=== PATIENT | male | born 1960 | race Caucasian/White ===

== ENCOUNTER 2020-08-07 13:35 | Inpatient (IN) ==
[2020-08-07] MEDS ORDERED: MoRPHine SULFATE 4 MG/ML 1 ML CARP\\VIAL IV STA (13:59)
[2020-08-07] MEDS ORDERED: PANTOprazole 40 MG in SYRINGE 0 ML IV ONE (13:59)
[2020-08-07] MEDS ORDERED: ONDANSETRON INJ 2 MG/ML 2 ML VIAL IV STA (13:59)
[2020-08-07] MEDS ORDERED: SODIUM CHLORIDE 0.9% 1000ML 2,000 ML IV ONE (14:00)
[2020-08-07 14:15] LABS: iSTAT Creatinine 0.9 mg/dl (0.6-1.3); iSTAT Hemoglobin 16.7 g/dl (14.0-18.0); iSTAT Ionized Calcium 1.16 mmol/l (1.12-1.32); iSTAT Potassium 3.8 mmol/L (3.3-5.0)
[2020-08-07 14:18] LABS: Eosinophils # (auto) 0.02 K/uL (0-0.5); Eosinophils % (auto) 0.2 %; Hematocrit (blood only) 46.3 % (42-52); Hemoglobin 16.6 g/dL (14.0-18.0); Immature Granulocytes # (auto) 0.01 K/uL (0.00-0.02); Immature Granulocytes % (auto) 0.1 %; Lymphocytes # (auto) 1.48 K/uL (1.2-3.4); Lymphocytes % (auto) 16.6 %; Mean Corpuscular Hemoglobin 32.2 pg (25-34); Mean Corpuscular Hgb Conc 35.9 g/dL (32-36); Mean Corpuscular Volume 89.9 fL (80-100); Mean Platelet Volume 8.7 fL (7.4-10.4); Monocytes # (auto) 0.54 K/uL (0.11-0.59); Monocytes % (auto) 6.1 %; Neutrophils # (auto) 6.87 K/uL (1.4-6.5); Platelet Count 310 K/uL (130-400); RDW Coefficient of Variation 13.6 % (11.5-14.5); RDW Standard Deviation 44.5 fL (36.4-46.3); Red Blood Count 5.15 M/uL (4.7-6.1); White Blood Count 8.92 K/uL (4.8-10.8)
--- NOTE | 2020-08-07 14:22 | XRay Report ---
XR chest 1V portable CLINICAL HISTORY: Chest Pain COMPARISON STUDY: No previous studies for comparison. FINDINGS: Lung volumes are normal. There is no pneumothorax or pleural effusion. Moderate right midlu ng consolidation is noted. There is no evidence for pulmonary edema. Cardiac size is normal. Mediasti nal contours are normal. Within visualized portions of the upper abdomen, note is made of multiple di lated loops of small bowel which measure up to 4 cm in caliber. IMPRESSION: 1. Moderate right midlung consolidation suggestive of pneumonia. Radiographic follow-up is recommende d to exclude the less likely possibility of a neoplasm. 2. Multiple loops of dilated small bowel within the upper abdomen, partially imaged on this exam. Thi s raises the possibility of a small bowel obstruction. ACT 112: Positive. There are findings on this exam that require communication between the performing entity and the patient following Patient Test Result Information Act ([place] Act 112) guidelines. Electronically signed by: Raghav Cherry M.D. 08/07/2020 2:20 PM
[2020-08-07] MEDS ORDERED: OPTIRAY 300 100mL IV ONE (14:23)
[2020-08-07 14:29] LABS: INR 1.1 (0.9-1.1); Prothrombin Time 10.7 Seconds (9.0-12.0)
[2020-08-07 14:36] LABS: Alanine Aminotransferase 57 U/L (12-78); Albumin Level 3.6 gm/dl (3.4-5.0); Aspartate Aminotransferase 33 U/L (15-37); Bilirubin Direct 0.4 mg/dl (0-0.2); Blood Urea Nitrogen 16 mg/dl (7-18); Calcium 9.3 mg/dl (8.5-10.1); Carbon Dioxide 28 mmol/L (21-32); Chloride 102 mmol/L (98-107); Est GFR (African American) 104.5; Est GFR (Non-African American) 90.2; Glucose 129 mg/dl (70-99); Lipase 38 U/L (73-393); Magnesium 2.1 mg/dl (1.8-2.4); Potassium 3.7 mmol/L (3.5-5.1); Sodium 135 mmol/L (136-145)
[2020-08-07 14:39] LABS: Albumin Globulin Ratio 0.7 (0.9-2); Alkaline Phosphatase 66 U/L (45-117); Bilirubin,Total 1.3 mg/dl (0.2-1); Globulin 4.9 gm/dl (2.5-4.0); Phosphorus 2.5 mg/dl (2.5-4.9); Total Protein 8.5 gm/dl (6.4-8.2); Troponin I < 0.015 ng/ml (0-0.045)
[2020-08-07 14:55] LABS: Influenza A virus by PCR Negative (Neg); Influenza B virus by PCR Negative (Neg); RSV by PCR Negative (Neg); SARS CoV2 RNA(COVID-19) InHosp NEGATIVE (Negative)
--- NOTE | 2020-08-07 15:07 | CT Scan Report ---
CT OF THE ABDOMEN AND PELVIS WITH CONTRAST CLINICAL HISTORY: Abdominal pain, nausea and vomiting. COMPARISON STUDY: None. TECHNIQUE: Following IV administration of 85 mL of Optiray, axial images of the abdomen and pelvis we re obtained from the lung bases to the proximal femurs. Images were reviewed in the axial, sagittal, and coronal planes. IV contrast was administered without complication. Automated exposure control wa s utilized for the study. A dose lowering technique was utilized adhering to the principles of ALARA . CT DOSE: 281.18 mGy.cm FINDINGS: The pricing strategist image partially visualizes right midlung airspace opacity which is better depicte d on the chest radiograph performed earlier today. There is minimal groundglass opacity within the le ft lower lobe. No pneumatosis, free air or portal venous gas is present. There is a small hiatal silvia ia. Distal esophagus is mildly fluid-filled. The liver, adrenal glands and kidneys are unremarkable. Mild splenomegaly is noted. There is no biliary or pancreatic ductal dilatation. Small amount of asci ruchi within the pelvis is noted. There is trace abdominal ascites as well. The majority of the small b owel is moderately dilated and fluid-filled. Gradual transition is noted within the lower abdomen wit h decompressed distal ileum. Infiltration is noted adjacent to the distal ileum. There is mild mesent rina infiltration associated with several additional small bowel loops. There is no abscess. The appe ndix is normal. Major vasculature is patent. There is no hydronephrosis. There are possible small upp er abdominal collaterals. IMPRESSION: 1. Moderately dilated fluid-filled small bowel with gradual transition within the distal small bowel with decompressed distal ileum with adjacent mesenteric infiltration and a small amount of ascites. T he findings suggest a small bowel obstruction possibly related to a nonspecific enteritis. No well-de fined transition point identified. 2. Right midlung airspace opacity shown on pricing strategist image, better depicted on chest radiograph. This is indeterminate and follow-up PA and lateral chest radiographs in one month are recommended to ensure r esolution. 3. Minimal ground glass opacity within the left lower lobe. ACT 112: Negative or not required by law. Electronically signed by: Raghav Cherry M.D. 08/07/2020 3:05 PM
--- NOTE | 2020-08-07 15:40 | Electrocardiogram Report ---
Test Reason : Blood Pressure : / mmHG Vent. Rate : 097 BPM Atrial Rate : 097 BPM P-R Int : 132 ms QRS Dur : 072 ms QT Int : 346 ms P-R-T Axes : 076 -01 079 degrees QTc Int : 439 ms Normal sinus rhythm Possible Left atrial enlargement Borderline ECG No previous ECGs available Confirmed by Parminder Robison ([id number]) on 08/07/2020 3:40:16 PM Referred By: REFERRED SELF Confirmed By:Parminder Robison
[2020-08-07] MEDS ORDERED: FAMOTIDINE 20MG IV PUSH 20 MG/5 ML SYR IV STA (16:00)
--- NOTE | 2020-08-07 16:57 | History & Physical Report ---
Date of Service August 07, 2020 Assessment & Plan (1) SBO (small bowel obstruction): - Mental monitor bed - Continue conservative measures with n.p.o., IV fluids, and low intermittent NG tube suction - Consider infectious cause, will start Cipro and Flagyl IV empirically -IV Pepcid 20 mg every 12 hours as PPI is on backorder - Patient has a bowel movement, collect for stool sample and possible C. difficile testing - Ask GI as noted below - We will ask general surgery to evaluate although patient has no immediate indications for surgery at this time (2) Hematemesis: - Hematemesis seems doubtful as patient is now draining bilious secretions. Hemoglobin is within normal limits - We will order gastroccult - consider EGD, GI will be consulted for possible further work-up (3) Patient denies significant medical history: Patient is on no outpatient medications, denied any medical problems or previous abdominal surgery. He also denied NSAID intake. I will continue to monitor. The patient does have regular alcohol intake, I would be concerned for a possible alcohol withdrawal. SCDs only now for DVT prophylaxis. History of Present Illness Primary Care Provider: NO PCP This is a 60-year-old male who denies any medical problems that presents today complaining of significant abdominal pain. Patient is a somewhat limited historian but answers questions appropriately. Patient states that yesterday in the early afternoon he started having abdominal pain which worsened fairly quickly. The pain was in the bilateral upper quadrants. It was associated with vomiting which was described to the ER attending as "black and tarry ". Pain was significant which prompted the patient to come to the emergency room. He did note his last bowel movement was yesterday which was brown and fairly normal. Patient was afebrile, denied symptom such as chest pain, shortness of breath, fever, chills. During work-up, patient was found to have a small bowel obstruction with questionable nonspecific enteritis. NG tube was inserted which is draining dark bilious material which does not appear to be blood. Patient is uncomfortable secondary to the NG tube but feels his abdominal pain is improved significantly. Patient is now being admitted for further work-up and treatment. Allergies Allergy/AdvReac Type Severity Reaction Status Date / Time diphenhydramine Allergy Mild Itching Unverified 08/07/20 15:41 [From Benadryl] Home Medications Medication Instructions Recorded Confirmed Type No Known Home Medications 08/07/20 08/07/20 History Past Med/Surg History Social History (Updated 08/07/20 @ 16:48 by Francisco Morales DO) Smoking Status: Never smoker Do You Dip or Chew Tobacco: Yes; Hx Alcohol Use: Yes (3 beers daily) Preferred Language: Irish Feels Safe at Home: Yes Review of Systems Constitutional: no fever, no chills, no fatigue and no anorexia Respiratory: no cough, no chest congestion, no change in sputum, no dyspnea, no dyspnea on exertion and no pain on inspiration Cardiovascular: no chest pain, no chest pain at rest, no chest pain with activity, no dyspnea, no orthopnea and no lightheadedness Gastrointestinal: + abdominal pain, + bloating, + nausea, + vomiting and + hematemesis (questionable); no coffee ground emesis, no dysphagia, no change in stools and no melena Genitourinary: no dysuria, no difficulty urinating, no urinary frequency, no urinary hesitancy and no urinary incontinence Musculoskeletal: no back pain, no neck pain, no radicular pain, no joint pain and no stiffness Integumentary: as per Subjective / HPI Neurologic: as per Subjective / HPI Psychiatric: as per Subjective / HPI Physical Exam Neck: trachea midline, no thyromegaly Respiratory: normal respiratory effort, lungs clear to auscultation Auscultation: lungs clear to auscultation bilaterally Cardiovascular: RRR, no murmur, no edema Heart Sounds: normal S1 and normal S2 Gastrointestinal (Abdomen): normal bowel sounds, soft, nontender, no hepa tosplenomegaly Inspection/Auscultation: abdomen normal to inspection and + hypoactive bowel sounds Percussion/Palpation: abdomen soft Rectal Exam: heme negative stool (scant brown stool per ER physician) NG tube draining dark green secretions Musculoskeletal: no cyanosis or clubbing, extremities motor strength 5/5 Neurologic: PERRL, EOMI, accommodation nl, no face palsy, no dysarthria Results & Data Results & Data ([facility]) Vital Signs (Past 12 Hours) Vital Signs Temp Pulse Pulse Resp BP BP Pulse Ox 08/07/20 16:00 87 14 131/83 98 08/07/20 15:31 94 H 15 136/81 98 08/07/20 15:30 90 16 99 08/07/20 15:00 94 H 14 124/84 98 08/07/20 14:49 98 H 24 119/79 95 08/07/20 14:48 98 H 15 98 08/07/20 14:00 104 H 129/87 100 08/07/20 13:50 98 H 17 138/91 98 08/07/20 13:48 96 H 16 95 08/07/20 13:44 101 H 22 150/98 H 95 08/07/20 13:35 36.5 C 115 H 115 H 22 150/98 H 150/98 H 93 PG Care Time/CCT Total # of Minutes Spent Total Time Spent with Patient: Total time spent is greater than 50% in coordination of care (as documented) at patient's floor/unit and/or counseling patient: Coding Level of Care Code 13185 Initial Inpt Care Lvl 3 Diagnoses SBO (small bowel obstruction) K56.609 Hematemesis K92.0 Patient denies significant medical history
--- NOTE | 2020-08-07 17:37 | Emergency Department Note ---
Impression & Plan SBO (small bowel obstruction), Abdominal pain, Intractable vomiting with nausea, Alcohol use, Chewing tobacco use ED Provider Note NAME: CHINMAY MCGINNIS AGE: 60 SEX: M ARRIVES VIA: Ambulance INFORMANT: Patient, ED PROVIDER(S): Jean Sanders MD CHIEF COMPLAINT: Abdominal pain, n/v PLAN: Disposition: Admit MEDICAL DECISION MAKING: The patient is a pleasant 60-year-old gentleman with a past medical history of regular alcohol use who presents to the emergency department with worsening nausea, vomiting of black emesis, and abdominal pain since yesterday. He reports history of daily drinking of alcohol but denies any history of withdrawal. He does admit to frequent use of ibuprofen as well. He denies any history of abdominal surgeries. Prior to this he denies any fevers, chills, cough, congestion, known COVID-19 exposures. On arrival the patient is uncomfortable in moderate distress, afebrile with heart rate in the 110s and vital signs otherwise stable. On exam the patient appears clinically dry. His abdomen is mildly distended and tender throughout. Rectal exam demonstrates brown stool that is Hemoccult negative. There is no gross blood or melena. EKG without overt acute ischemia. Chest x-ray negative for acute cardiopulmonary process and no free air underneath the diaphragm. Partial view of suspected dilated loops of bowel raises suspicion for possible obstruction. WBC, H/H and platelets within normal limits. Chemistry without metabolic acidosis. Electrolytes and LFTs are unremarkable. Troponin negative/undetectable. Lipase not elevated. Alcohol was undetectable. COVID- 19 PCR negative. Influenza and RSV PCR also negative. CT abdomen pelvis was performed and demonstrates "moderately dilated fluid-filled small bowel with gradual transition within the distal small bowel with decompressed distal ileum with adjacent mesenteric infiltration and a small amount of ascites. Suggestive of a small bowel obstruction possibly related to a nonspecific enteritis. No well-defined transition point identified." Note is made of right midlung airspace opacity however of unclear significance at this time given lack of respiratory symptoms. Upon reevaluation patient did feel improved after IV fluid hydration, morphine, Protonix. Abdomen however still mildly tender. Given H/H wnl, brown stool on rectal exam upper GIB less likely. Dark/black color possibly due to patient use of chewing tobacco. Patient was in agreement with plan for admission, NG tube and further management of small bowel obstruction. Case was d/w Dr. [place]ales [facility] [place] who will evaluate the patient for admission. Triage Nursing notes reviewed and agree them. Prior medical records reviewed Vital Signs: reviewed and remarkable for no significant abnormalities Differential diagnosis: Appendicitis, testicular torsion, infections, diverticulitis, UTI, obstruction, mesenteric ischemia, aortic pathology, inflammatory bowel disease, renal colic, PUD, pancreatitis, biliary pathology, hernia, volvulus, constipation, as well as other pathologies. ER treatment provided: See below. Diagnostics interpreted by me: ECG: Normal sinus rhythm, 97 bpm, no ectopy, no overt ST elevation or depression, QTC 439, cures 72. Cardiac Monitoring: An order for continuous cardiac monitoring was placed and demonstrated Normal sinus rhythm, 97 bpm, no ectopy. Laboratory studies: See below Imaging studies: See below Consultation(s): Case was d/w Dr. Morales [facility] [place] who will evaluate the patient for admission. HPI: The patient is a pleasant 60-year-old gentleman with a past medical history of regular alcohol use who presents to the emergency department with worsening nausea, vomiting and abdominal pain since yesterday. He reports history of daily drinking of alcohol but denies any history of withdrawal. He does admit to frequent use of ibuprofen as well. He denies any history of abdominal surgeries. Prior to this he denies any fevers, chills, cough, congestion, known COVID-19 exposures. ROS: See above HPI for pertinent positives & negatives. A total of 10 systems reviewed and were otherwise negative. PAST MEDICAL HISTORY:See Below PAST SURGICAL HISTORY:See Below FAMILY HISTORY:See Below SOCIAL HISTORY:See Below HOME MEDICATIONS:See Below ALLERGIES:See Below VITALS:See Below PHYSICAL EXAMINATION: GENERAL: Awake, alert, uncomfortable-appearing, in no distress HENT: Normocephalic, atraumatic. Oropharynx with dry mucous membranes and otherwise unremarkable. EYES: Normal conjunctiva. Sclera non-icteric. NECK: Supple. No nuchal rigidity. FROM. No JVD. RESPIRATORY: Clear to auscultation. CARDIAC: Tachycardic rate, normal rhythm. Extremities warm and well perfused. Pulses equal. ABDOMEN: Mild distention. Generalized abdominal tenderness to palpation. No rebound or guarding. No masses. RECTAL: Deferred. MUSCULOSKELETAL: Chest examination reveals no tenderness. The back is sy mmetrical on inspection without obvious abnormality. There is no CVA tenderness to palpation. No joint edema. LOWER EXTREMITIES: Calves are equal size bilaterally and non-tender. No edema. No discoloration. NEURO: Normal sensorium. No sensory or motor deficits noted. SKIN: No rash or jaundice noted. Jean Sanders MD Past Med/Surg History Medical History Alcohol use Chewing tobacco use Social History Smoking Status: Former smoker Do You Dip or Chew Tobacco: Yes; Hx Alcohol Use: Yes Alcohol type: beer Hx Substance Use: Yes Last Used Substance: Days (ago) Last Used Substance Other:: Smokes marijuana every weekend Preferred Language: Martiniquais Communication Ability: Effective Meat Team Member Required: No Beliefs That Will Affect Care: None Current Living Situation: Family Other Information That Helps Us Care for You: No Feels Safe at Home: Yes Safety Concerns: Feels Safe At This Time Assistive Devices: None Allergies Allergies Allergy/AdvReac Type Severity Reaction Status Date / Time diphenhydramine Allergy Mild Itching Unverified 08/07/20 15:41 [From Benadryl] Home Meds Home Medications Medication Instructions Recorded Confirmed No Known Home Medications 08/07/20 08/07/20 Results & Data (ED) Vital Signs Vital Signs - 24 hr 08/07/20 13:35 08/07/20 13:44 08/07/20 13:48 Temperature 36.5 C Temperature Source Oral Pulse Rate 115 H 101 H 96 H Pulse Rate [Apical] 115 H Pulse Rate from SpO2 Sensor 99 H 92 H Pulse Rhythm Regular Respiratory Rate 22 22 16 Respiratory Effort / Characteristics Short of Breath Blood Pressure 150/98 H 150/98 H Blood Pressure [Right Arm] 150/98 H Blood Pressure Mean 115 115 Blood Pressure Mean [Right Arm] 115 Blood Pressure Position Lying Blood Pressure Position [Right Arm] Lying Pulse Oximetry 93 95 95 Oxygen Delivery Method Room Air Sepsis Recent Fever Within 48 Hours No Sepsis New/Unexplained Change in Mental Status N/A Sepsis Action Taken by Nursing Physician Notified 08/07/20 13:50 08/07/20 14:00 08/07/20 14:48 Temperature Temperature Source Pulse Rate 98 H 104 H 98 H Pulse Rate [Apical] Pulse Rate from SpO2 Sensor 98 H 103 H 97 H Pulse Rhythm Respiratory Rate 17 15 Respiratory Effort / Characteristics Blood Pressure 138/91 129/87 Blood Pressure [Right Arm] Blood Pressure Mean 106 101 Blood Pressure Mean [Right Arm] Blood Pressure Position Blood Pressure Position [Right Arm] Pulse Oximetry 98 100 98 Oxygen Delivery Method Sepsis Recent Fever Within 48 Hours Sepsis New/Unexplained Change in Mental Status Sepsis Action Taken by Nursing 08/07/20 14:49 08/07/20 15:00 08/07/20 15:30 Temperature Temperature Source Pulse Rate 98 H 94 H 90 Pulse Rate [Apical] Pulse Rate from SpO2 Sensor 98 H 93 H 91 H Pulse Rhythm Respiratory Rate 24 14 16 Respiratory Effort / Characteristics Blood Pressure 119/79 124/84 Blood Pressure [Right Arm] Blood Pressure Mean 92 97 Blood Pressure Mean [Right Arm] Blood Pressure Position Blood Pressure Position [Right Arm] Pulse Oximetry 95 98 99 Oxygen Delivery Method Sepsis Recent Fever Within 48 Hours Sepsis New/Unexplained Change in Mental Status Sepsis Action Taken by Nursing 08/07/20 15:31 08/07/20 16:00 08/07/20 16:30 Temperature Temperature Source Pulse Rate 94 H 87 Pulse Rate [Apical] Pulse Rate from SpO2 Sensor 93 H 78 84 Pulse Rhythm Respiratory Rate 15 14 18 Respiratory Effort / Characteristics Blood Pressure 136/81 131/83 133/84 Blood Pressure [Right Arm] Blood Pressure Mean 99 99 100 Blood Pressure Mean [Right Arm] Blood Pressure Position Blood Pressure Position [Right Arm] Pulse Oximetry 98 98 97 Oxygen Delivery Method Sepsis Recent Fever Within 48 Hours Sepsis New/Unexplained Change in Mental Status Sepsis Action Taken by Nursing 08/07/20 17:00 Temperature Temperature Source Pulse Rate Pulse Rate [Apical] Pulse Rate from SpO2 Sensor 101 H Pulse Rhythm Respiratory Rate 19 Respiratory Effort / Characteristics Blood Pressure 133/96 Blood Pressure [Right Arm] Blood Pressure Mean 108 Blood Pressure Mean [Right Arm] Blood Pressure Position Blood Pressure Position [Right Arm] Pulse Oximetry 97 Oxygen Delivery Method Sepsis Recent Fever Within 48 Hours Sepsis New/Unexplained Change in Mental Status Sepsis Action Taken by Nursing Laboratory Data Attestation: I reviewed the patient's lab results. Result diagrams: 08/07/20 13:57 08/07/20 13:57 Lab Results 08/07/20 08/07/20 08/07/20 Range/Units 13:54 13:54 13:57 WBC (4.8-10.8) K/uL RBC (4.7-6.1) M/uL Hgb (14.0-18.0) g/dL POC Hgb (14.0-18.0) g/dl Hct (42-52) % POC Hct (42-52) % MCV (80-100) fL MCH (25-34) pg MCHC (32-36) g/dL RDW Std Deviation (36.4-46.3) fL RDW Coeff of Sylwia (11.5-14.5) % Plt Count (130-400) K/uL MPV (7.4-10.4) fL Immature Gran % (Auto) % Neut % (Auto) % Lymph % (Auto) % Sebastian % (Auto) % Eos % (Auto) % Baso % (Auto) % Neut # (Auto) (1.4-6.5) K/uL Lymph # (Auto) (1.2-3.4) K/uL Sebastian # (Auto) (0.11-0.59) K/uL Eos # (Auto) (0-0.5) K/uL Baso # (Auto) (0-0.2) K/uL Immature Gran # (Auto) (0.00-0.02) K/uL PT (9.0-12.0) Seconds INR (0.9-1.1) POC Sodium (135-144) mmol/L Sodium (136-145) mmol/L POC Potassium (3.3-5.0) mmol/L Potassium (3.5-5.1) mmol/L POC Chloride (101-112) mmol/L Chloride (98-107) mmol/L Carbon Dioxide (21-32) mmol/L POC Total CO2 (24-31) mmol/L Anion Gap (3-11) POC Anion Gap (16-25) mmol/L POC BUN (7-18) mg/dl BUN (7-18) mg/dl Creatinine (0.6-1.4) mg/dl POC Creatinine (0.6-1.3) mg/dl Est Cr Clr Drug Dosing ml/min Est GFR ( Amer) Est GFR (Non-Af Amer) BUN/Creatinine Ratio (10-20) Glucose (70-99) mg/dl POC Glucose (other) (70-99) mg/dl Calcium (8.5-10.1) mg/dl POC Ioniz Calcium Castillo (1.12-1.32) mmol/l Phosphorus (2.5-4.9) mg/dl Magnesium (1.8-2.4) mg/dl Total Bilirubin (0.2-1) mg/dl Direct Bilirubin (0-0.2) mg/dl AST (15-37) U/L ALT (12-78) U/L Alkaline Phosphatase (45-117) U/L Troponin I (0-0.045) ng/ml Total Protein (6.4-8.2) gm/dl Albumin (3.4-5.0) gm/dl Globulin (2.5-4.0) gm/dl Albumin/Globulin Ratio (0.9-2) Lipase (73-393) U/L Ethyl Alcohol mg/dL (0-3) mg/dl COVID-19 Eval Order CovFluRsv at [facility] SARS-CoV-2 (PCR) NEGATIVE (Negative) Influenza Type A (PCR) Negative (Neg) Influenza Type B (PCR) Negative (Neg) RSV (RT-PCR) Negative (Neg) Blood Type A Positive Antibody Screen NEGATIVE 08/07/20 08/07/20 08/07/20 Range/Units 13:57 13:57 13:57 WBC 8.92 (4.8-10.8) K/uL RBC 5.15 (4.7-6.1) M/uL Hgb 16.6 (14.0-18.0) g/dL POC Hgb (14.0-18.0) g/dl Hct 46.3 (42-52) % POC Hct (42-52) % MCV 89.9 (80-100) fL MCH 32.2 (25-34) pg MCHC 35.9 (32-36) g/dL RDW Std Deviation 44.5 (36.4-46.3) fL RDW Coeff of Sylwia 13.6 (11.5-14.5) % Plt Count 310 (130-400) K/uL MPV 8.7 (7.4-10.4) fL Immature Gran % (Auto) 0.1 % Neut % (Auto) 77.0 % Lymph % (Auto) 16.6 % Sebastian % (Auto) 6.1 % Eos % (Auto) 0.2 % Baso % (Auto) 0.0 % Neut # (Auto) 6.87 H (1.4-6.5) K/uL Lymph # (Auto) 1.48 (1.2-3.4) K/uL Sebastian # (Auto) 0.54 (0.11-0.59) K/uL Eos # (Auto) 0.02 (0-0.5) K/uL Baso # (Auto) 0.00 (0-0.2) K/uL Immature Gran # (Auto) 0.01 (0.00-0.02) K/uL PT 10.7 (9.0-12.0) Seconds INR 1.1 (0.9-1.1) POC Sodium (135-144) mmol/L Sodium 135 L (136-145) mmol/L POC Potassium (3.3-5.0) mmol/L Potassium 3.7 (3.5-5.1) mmol/L POC Chloride (101-112) mmol/L Chloride 102 (98-107) mmol/L Carbon Dioxide 28 (21-32) mmol/L POC Total CO2 (24-31) mmol/L Anion Gap 5.0 (3-11) POC Anion Gap (16-25) mmol/L POC BUN (7-18) mg/dl BUN 16 (7-18) mg/dl Creatinine 0.93 (0.6-1.4) mg/dl POC Creatinine (0.6-1.3) mg/dl Est Cr Clr Drug Dosing 97.0 ml/min Est GFR ( Amer) 104.5 Est GFR (Non-Af Amer) 90.2 BUN/Creatinine Ratio 17.0 (10-20) Glucose 129 H (70-99) mg/dl POC Glucose (other) (70-99) mg/dl Calcium 9.3 (8.5-10.1) mg/dl POC Ioniz Calcium Castillo (1.12-1.32) mmol/l Phosphorus 2.5 (2.5-4.9) mg/dl Magnesium 2.1 (1.8-2.4) mg/dl Total Bilirubin 1.3 H (0.2-1) mg/dl Direct Bilirubin 0.4 H (0-0.2) mg/dl AST 33 (15-37) U/L ALT 57 (12-78) U/L Alkaline Phosphatase 66 (45-117) U/L Troponin I < 0.015 (0-0.045) ng/ml Total Protein 8.5 H (6.4-8.2) gm/dl Albumin 3.6 (3.4-5.0) gm/dl Globulin 4.9 H (2.5-4.0) gm/dl Albumin/Globulin Ratio 0.7 L (0.9-2) Lipase 38 L (73-393) U/L Ethyl Alcohol mg/dL (0-3) mg/dl COVID-19 Eval Order SARS-CoV-2 (PCR) (Negative) Influenza Type A (PCR) (Neg) Influenza Type B (PCR) (Neg) RSV (RT-PCR) (Neg) Blood Type Antibody Screen 08/07/20 08/07/20 Range/Units 14:02 14:06 WBC (4.8-10.8) K/uL RBC (4.7-6.1) M/uL Hgb (14.0-18.0) g/dL POC Hgb 16.7 (14.0-18.0) g/dl Hct (42-52) % POC Hct 49 (42-52) % MCV (80-100) fL MCH (25-34) pg MCHC (32-36) g/dL RDW Std Deviation (36.4-46.3) fL RDW Coeff of Sylwia (11.5-14.5) % Plt Count (130-400) K/uL MPV (7.4-10.4) fL Immature Gran % (Auto) % Neut % (Auto) % Lymph % (Auto) % Sebastian % (Auto) % Eos % (Auto) % Baso % (Auto) % Neut # (Auto) (1.4-6.5) K/uL Lymph # (Auto) (1.2-3.4) K/uL Sebastian # (Auto) (0.11-0.59) K/uL Eos # (Auto) (0-0.5) K/uL Baso # (Auto) (0-0.2) K/uL Immature Gran # (Auto) (0.00-0.02) K/uL PT (9.0-12.0) Seconds INR (0.9-1.1) POC Sodium 138 (135-144) mmol/L Sodium (136-145) mmol/L POC Potassium 3.8 (3.3-5.0) mmol/L Potassium (3.5-5.1) mmol/L POC Chloride 100 L (101-112) mmol/L Chloride (98-107) mmol/L Carbon Dioxide (21-32) mmol/L POC Total CO2 27 (24-31) mmol/L Anion Gap (3-11) POC Anion Gap 16.0 (16-25) mmol/L POC BUN 16 (7-18) mg/dl BUN (7-18) mg/dl Creatinine (0.6-1.4) mg/dl POC Creatinine 0.9 (0.6-1.3) mg/dl Est Cr Clr Drug Dosing ml/min Est GFR ( Amer) Est GFR (Non-Af Amer) BUN/Creatinine Ratio (10-20) Glucose (70-99) mg/dl POC Glucose (other) 127 H (70-99) mg/dl Calcium (8.5-10.1) mg/dl POC Ioniz Calcium Castillo 1.16 (1.12-1.32) mmol/l Phosphorus (2.5-4.9) mg/dl Magnesium (1.8-2.4) mg/dl Total Bilirubin (0.2-1) mg/dl Direct Bilirubin (0-0.2) mg/dl AST (15-37) U/L ALT (12-78) U/L Alkaline Phosphatase (45-117) U/L Troponin I (0-0.045) ng/ml Total Protein (6.4-8.2) gm/dl Albumin (3.4-5.0) gm/dl Globulin (2.5-4.0) gm/dl Albumin/Globulin Ratio (0.9-2) Lipase (73-393) U/L Ethyl Alcohol mg/dL < 3.0 (0-3) mg/dl COVID-19 Eval Order SARS-CoV-2 (PCR) (Negative) Influenza Type A (PCR) (Neg) Influenza Type B (PCR) (Neg) RSV (RT-PCR) (Neg) Blood Type Antibody Screen Administered Medications Ciprofloxacin (Cipro / D5w) 400 mg in 200 mls @ 100 mls/hr IV Q12H MINDY; Protocol Stop: 08/17/20 20:59 Last Admin: 08/07/20 20:41 Dose: 100 mls/hr Documented by: [id number] Metronidazole (Flagyl) 500 mg in 100 mls @ 100 mls/hr IV Q8H MINDY Stop: 08/17/20 19:59 Last Admin: 08/07/20 20:40 Dose: 100 mls/hr Documented by: [id number] Sodium Chloride (Nss 1000ml) 1,000 mls @ 100 mls/hr IV .Q10H MINDY Stop: 09/06/20 19:25 Last Admin: 08/07/20 20:39 Dose: 100 mls/hr Documented by: [id number] Famotidine 20 mg/ Syringe 5 mls @ 2.5 mls/min IV Q12H MINDY Stop: 09/06/20 20:59 Last Admin: 08/07/20 20:41 Dose: 2.5 mls/min Documented by: [id number] Discontinued Medications Pantoprazole Sodium 40 mg/ (Syringe) 10 mls @ 5 mls/min IV NOW ONE Stop: 08/07/20 14:00 Last Admin: 08/07/20 14:51 Dose: 5 mls/min Documented by: [id number] Sodium Chloride (Nss 1000ml) 2,000 mls @ 999 mls/hr IV .Q2H1M ONE Stop: 08/07/20 16:00 Last Infusion: 08/07/20 16:35 Dose: 0 mls/hr Documented by: [id number] Admin: 08/07/20 14:11 Dose: 999 mls/hr Documented by: [id number] Famotidine (Pepcid 20mg Iv Push) 20 mg in 5 mls @ 2.5 mls/min IV NOW STA Stop: 08/07/20 16:01 Last Admin: 08/07/20 16:21 Dose: 2.5 mls/min Documented by: [id number] Ioversol (Optiray 300 100ml) 85 ml IV ONCE ONE Stop: 08/07/20 14:24 Last Admin: 08/07/20 14:23 Dose: 85 ml Documented by: [id number] Morphine Sulfate (Morphine Sulfate 4 Mg/Ml 1 Ml Carp\\Vial) 4 mg IV NOW STA Stop: 08/07/20 14:00 Last Admin: 08/07/20 14:11 Dose: 4 mg Documented by: [id number] Ondansetron HCl (Ondansetron Inj 2 Mg/Ml 2 Ml Vial) 4 mg IV NOW STA Stop: 08/07/20 14:00 Last Admin: 08/07/20 14:11 Dose: 4 mg Documented by: [id number] Imaging Data Radiologist's Impression: Chest X-Ray 08/07/20 14:00 XR chest 1V portable CLINICAL HISTORY: Chest Pain COMPARISON STUDY: No previous studies for comparison. FINDINGS: Lung volumes are normal. There is no pneumothorax or pleural effusion. Moderate right midlung consolidation is noted. There is no evidence for pulmonary edema. Cardiac size is normal. Mediastinal contours are normal. Within visualized portions of the upper abdomen, note is made of multiple dilated loops of small bowel which measure up to 4 cm in caliber. IMPRESSION: 1. Moderate right midlung consolidation suggestive of pneumonia. Radiographic follow-up is recommended to exclude the less likely possibility of a neoplasm. 2. Multiple loops of dilated small bowel within the upper abdomen, partially imaged on this exam. This raises the possibility of a small bowel obstruction. ACT 112: Positive. There are findings on this exam that require communication between the performing entity and the patient following Patient Test Result Information Act ([place] Act 112) guidelines. Electronically signed by: Raghav Cherry M.D. 08/07/2020 2:20 PM Abdomen/Pelvis CT 08/07/20 14:01 CT OF THE ABDOMEN AND PELVIS WITH CONTRAST CLINICAL HISTORY: Abdominal pain, nausea and vomiting. COMPARISON STUDY: None. TECHNIQUE: Following IV administration of 85 mL of Optiray, axial images of the abdomen and pelvis were obtained from the lung bases to the proximal femurs. Images were reviewed in the axial, sagittal, and coronal planes. IV contrast was administered without complication. Automated exposure control was utilized for the study. A dose lowering technique was utilized adhering to the principles of ALARA. CT DOSE: 281.18 mGy.cm FINDINGS: The plasterer spot image partially visualizes right midlung airspace opacity which is better depicted on the chest radiograph performed earlier today. There is minimal groundglass opacity within the left lower lobe. No pneumatosis, free air or portal venous gas is present. There is a small hiatal hernia. Distal esophagus is mildly fluid-filled. The liver, adrenal glands and kidneys are unremarkable. Mild splenomegaly is noted. There is no biliary or pancreatic ductal dilatation. Small amount of ascites within the pelvis is noted. There is trace abdominal ascites as well. The majority of the small bowel is moderately dilated and fluid-filled. Gradual transition is noted within the lower abdomen with decompressed distal ileum. Infiltration is noted adjacent to the distal ileum. There is mild mesenteric infiltration associated with several additional small bowel loops. There is no abscess. The appendix is normal. Major vasculature is patent. There is no hydronephrosis. There are possible small upper abdominal collaterals. IMPRESSION: 1. Moderately dilated fluid-filled small bowel with gradual transition within the distal small bowel with decompressed distal ileum with adjacent mesenteric i nfiltration and a small amount of ascites. The findings suggest a small bowel obstruction possibly related to a nonspecific enteritis. No well-defined transition point identified. 2. Right midlung airspace opacity shown on plasterer spot image, better depicted on chest radiograph. This is indeterminate and follow-up PA and lateral chest radiographs in one month are recommended to ensure resolution. 3. Minimal ground glass opacity within the left lower lobe. ACT 112: Negative or not required by law. Electronically signed by: Raghav Cherry M.D. 08/07/2020 3:05 PM Discharge Plan Visit Data Chief Complaint: Abdominal Pain Stated Complaint: gi bleed ED Provider: Jean Sanders Discharge Problem: SBO (small bowel obstruction), Abdominal pain, Intractable vomiting with nausea, Alcohol use, Chewing tobacco use Patient Disposition: Admitted As Inpatient Discharge Instructions Interventions: ED Discharge Assessment Last Done: 08/07/20 18:20
[2020-08-07] MEDS ORDERED: MoRPHine SULFATE 2 MG/ML CARP IV PRN (19:26)
[2020-08-07] MEDS ORDERED: ONDANSETRON INJ 2 MG/ML 2 ML VIAL IV PRN (19:26)
[2020-08-07] MEDS: SODIUM CHLORIDE 0.9% 1000ML 1,000 ML IV SCH (20:39)
[2020-08-07] MEDS: metroNIDAZOLE 500 MG/100 ML BAG IV SCH (20:40)
[2020-08-07] MEDS: CIPROFLOXACIN / D5W 400 MG/200 ML BAG IV SCH (20:41)
[2020-08-07] MEDS: FAMOTIDINE 20 MG in SYRINGE 3 ML IV SCH (20:41)
[2020-08-08] MEDS: metroNIDAZOLE 500 MG/100 ML BAG IV SCH ×3 (05:04→19:48)
[2020-08-08 05:17] LABS: Gastric Occult Blood Positive (Negative)
[2020-08-08] MEDS: SODIUM CHLORIDE 0.9% 1000ML 1,000 ML IV SCH ×2 (06:18→15:35)
[2020-08-08 06:45] LABS: Basophils # (auto) 0.01 K/uL (0-0.2); Basophils % (auto) 0.2 %; Eosinophils # (auto) 0.06 K/uL (0-0.5); Eosinophils % (auto) 1.1 %; Hemoglobin 14.5 g/dL (14.0-18.0); Lymphocytes % (auto) 26.2 %; Mean Corpuscular Hemoglobin 31.3 pg (25-34); Mean Corpuscular Hgb Conc 35.4 g/dL (32-36); Mean Corpuscular Volume 88.4 fL (80-100); Mean Platelet Volume 8.9 fL (7.4-10.4); Monocytes % (auto) 11.2 %; Neutrophils # (auto) 3.28 K/uL (1.4-6.5); Neutrophils % (auto) 61.3 %; Platelet Count 222 K/uL (130-400); RDW Coefficient of Variation 13.6 % (11.5-14.5); RDW Standard Deviation 44.3 fL (36.4-46.3); Red Blood Count 4.64 M/uL (4.7-6.1); White Blood Count 5.35 K/uL (4.8-10.8)
[2020-08-08 07:15] LABS: BUN Creatinine Ratio 15.3 (10-20); Calcium 8.7 mg/dl (8.5-10.1); Creatinine Clr Calc Pharmacy 98.3 ml/min; Est GFR (African American) 118.5; Est GFR (Non-African American) 102.2; Potassium 3.9 mmol/L (3.5-5.1)
--- NOTE | 2020-08-08 07:17 | Surgery Consultation ---
Date of Consultation August 08, 2020 Assessment & Plan (1) Abdominal pain: (2) SBO (small bowel obstruction): pt is a 60 year-old male who was admitted to hospital for SBO, IMP: SBO, Plan, I agree with conservative treatment now, npo, NG tube, IV fluid, control pain, KUB today, D/W possible surgery treatment if pt develops severe abdominal high fever or WBC, pt understood, he agrees with the treatment, plan, I answered all questions, will F/U Present on Admission?: Yes History of Present Illness Attending Physician: Francisco Morales DO History of Present Illness Primary Care Provider: NO PCP CC: abdominal pain This is a 60-year-old male who denies any medical problems that presents today complaining of significant abdominal pain. Patient is a somewhat limited hi storian but answers questions appropriately. Patient states that yesterday in the early afternoon he started having abdominal pain which worsened fairly quickly. The pain was in the bilateral upper quadrants. It was associated with vomiting which was described to the ER attending as "black and tarry ". Pain was significant which prompted the patient to come to the emergency room. He did note his last bowel movement was yesterday which was brown and fairly normal. Patient was afebrile, denied symptom such as chest pain, shortness of breath, fever, chills. During work-up, patient was found to have a small bowel obstruction with questionable nonspecific enteritis. NG tube was inserted which is draining dark bilious material which does not appear to be blood. Patient is uncomfortable secondary to the NG tube but feels his abdominal pain is improved significantly. Patient is now being admitted for further work-up and treatment. Allergies Allergy/AdvReac Type Severity Reaction Status Date / Time diphenhydramine Allergy Mild Itching Unverified 08/07/20 15:41 [From Benadryl] Home Medications Medication Instructions Recorded Confirmed Type No Known Home Medications 08/07/20 08/07/20 History Past Med/Surg History Social History (Updated 08/07/20 @ 16:48 by Francisco Morales DO) Smoking Status: Never smoker Do You Dip or Chew Tobacco: Yes; Hx Alcohol Use: Yes (3 beers daily) Preferred Language: Citizen Of [place] Feels Safe at Home: Yes Review of Systems Constitutional: no fever, no chills, no fatigue and no anorexia Respiratory: no cough, no chest congestion, no change in sputum, no dyspnea, no dyspnea on exertion and no pain on inspiration Cardiovascular: no chest pain, no chest pain at rest, no chest pain with activity, no dyspnea, no orthopnea and no lightheadedness Gastrointestinal: + abdominal pain, + bloating, + nausea, + vomiting and + hematemesis (questionable); no coffee ground emesis, no dysphagia, no change in stools and no melena Genitourinary: no dysuria, no difficulty urinating, no urinary frequency, no urinary hesitancy and no urinary incontinence Musculoskeletal: no back pain, no neck pain, no radicular pain, no joint pain and no stiffness Integumentary: as per Subjective / HPI Neurologic: as per Subjective / HPI Psychiatric: as per Subjective / HPI Allergies Allergy/AdvReac Type Severity Reaction Status Date / Time diphenhydramine Allergy Mild Itching Unverified 08/07/20 15:41 [facility] Home Medications Medication Instructions Recorded Confirmed Type No Known Home Medications 08/07/20 08/07/20 History Patient History Medical History Alcohol use Chewing tobacco use Social History Smoking Status: Former smoker Do You Dip or Chew Tobacco: Yes; Hx Alcohol Use: Yes Alcohol type: beer Hx Substance Use: Yes Last Used Substance: Days (ago) Last Used Substance Other:: Smokes marijuana every weekend Preferred Language: Citizen Of [place] Communication Ability: Effective Market Maker Required: No Beliefs That Will Affect Care: None Current Living Situation: Family Other Information That Helps Us Care for You: No Feels Safe at Home: Yes Safety Concerns: Feels Safe At This Time Assistive Devices: None Physical Exam Constitutional: WD/WN, vitals as above well developed and well nourished Eyes: PERRL, conjunctivae normal, anicteric sclerae ENMT: external ear and nose normal, oropharynx normal Neck: trachea midline, no thyromegaly Respiratory: normal respiratory effort, lungs clear to auscultation normal respiratory effort Cardiovascular: RRR, no murmur, no edema Rate/Rhythm: regular rate and regular rhythm Gastrointestinal (Abdomen): Percussion/Palpation: + abdomen tender and abdomen soft mild tenderness at periumbilical area, no significant distend, no rebound pain, BS + Musculoskeletal: no cyanosis or clubbing, extremities motor strength 5/5 Skin: no rashes, warm and dry Neurologic: awake Psychiatric: Orientation: alert and oriented x 3 Results & Data ([facility]) Vital Signs (Past 12 Hours) Vital Signs Temp Pulse Resp BP Pulse Ox 08/08/20 04:09 36.9 C 92 H 18 128/82 99 08/07/20 23:38 36.7 C 90 18 133/81 98 08/07/20 19:40 36.6 C 92 H 18 143/89 H 99 Laboratory Results Abnormal lab results 08/07/20 08/07/20 08/07/20 Range/Units 13:57 13:57 14:02 RBC (4.7-6.1) M/uL Hct (42-52) % Neut # (Auto) 6.87 H (1.4-6.5) K/uL [place] # (Auto) (0.11-0.59) K/uL Sodium 135 L (136-145) mmol/L POC Chloride 100 L (101-112) mmol/L Chloride (98-107) mmol/L Glucose 129 H (70-99) mg/dl POC Glucose (other) 127 H (70-99) mg/dl Total Bilirubin 1.3 H (0.2-1) mg/dl Direct Bilirubin 0.4 H (0-0.2) mg/dl Total Protein 8.5 H (6.4-8.2) gm/dl Globulin 4.9 H (2.5-4.0) gm/dl Albumin/Globulin Ratio 0.7 L (0.9-2) Lipase 38 L (73-393) U/L Gastric Occult Blood (Negative) 08/08/20 08/08/20 08/08/20 Range/Units 04:35 06:08 06:08 RBC 4.64 L (4.7-6.1) M/uL Hct 41.0 L (42-52) % Neut # (Auto) (1.4-6.5) K/uL [place] # (Auto) 0.60 H (0.11-0.59) K/uL Sodium (136-145) mmol/L POC Chloride (101-112) mmol/L Chloride 108 H (98-107) mmol/L Glucose (70-99) mg/dl POC Glucose (other) (70-99) mg/dl Total Bilirubin (0.2-1) mg/dl Direct Bilirubin (0-0.2) mg/dl Total Protein (6.4-8.2) gm/dl Globulin (2.5-4.0) gm/dl Albumin/Globulin Ratio (0.9-2) Lipase (73-393) U/L Gastric Occult Blood Positive A (Negative) Diagnostic Findings CT OF THE ABDOMEN AND PELVIS WITH CONTRAST CLINICAL HISTORY: Abdominal pain, nausea and vomiting. COMPARISON STUDY: None. TECHNIQUE: Following IV administration of 85 mL of Optiray, axial images of the abdomen and pelvis were obtained from the lung bases to the proximal femurs. Images were reviewed in the axial, sagittal, and coronal planes. IV contrast was administered without complication. Automated exposure control was utilized for the study. A dose lowering technique was utilized adhering to the principles of ALARA. CT DOSE: 281.18 mGy.cm FINDINGS: The manufacturing assistant image partially visualizes right midlung airspace opacity which is better depicted on the chest radiograph performed earlier today. There is minimal groundglass opacity within the left lower lobe. No pneumatosis, free air or portal venous gas is present. There is a small hiatal hernia. Distal esophagus is mildly fluid-filled. The liver, adrenal glands and kidneys are unremarkable. Mild splenomegaly is noted. There is no biliary or pancreatic ductal dilatation. Small amount of ascites within the pelvis is noted. There is trace abdominal ascites as well. The majority of the small bowel is moderately dilated and fluid-filled. Gradual transition is noted within the lower abdomen with decompressed distal ileum. Infiltration is noted adjacent to the distal ileum. There is mild mesenteric infiltration associated with several additional small bowel loops. There is no abscess. The appendix is normal. Major vasculature is patent. There is no hydronephrosis. There are possible small upper abdominal collaterals. IMPRESSION: 1. Moderately dilated fluid-filled small bowel with gradual transition within the distal small bowel with decompressed distal ileum with adjacent mesenteric infiltration and a small amount of ascites. The findings suggest a small bowel obstruction possibly related to a nonspecific enteritis. No well-defined t ransition point identified. 2. Right midlung airspace opacity shown on manufacturing assistant image, better depicted on chest radiograph. This is indeterminate and follow-up PA and lateral chest radiographs in one month are recommended to ensure resolution. 3. Minimal ground glass opacity within the left lower lobe.
--- NOTE | 2020-08-08 09:02 | XRay Report ---
KUB CLINICAL HISTORY: Small bowel obstruction. FINDINGS: An AP, portable, supine abdominal radiograph is correlated with abdominal CT performed aileen ier the same day 05/30/2019. An enteric tube is partially imaged projecting just below the diaphragm. This is incompletely evaluated. There is persistent small bowel obstruction, with small bowel loops m easuring up to 5.5 cm in diameter. No evidence of intraperitoneal free air is seen on this supine exa mination. Excreted IV contrast is present in the bladder. No abnormal abdominal calcifications identi fied. The bony structures appear intact. IMPRESSION: 1. Persistent small bowel obstruction. 2. The tip of an enteric tube is partially imaged projecting just below the diaphragm. This is incomp letely assessed. Electronically signed by: Vishnu Alcaraz M.D. 08/08/2020 9:01 AM
[2020-08-08] MEDS: CIPROFLOXACIN / D5W 400 MG/200 ML BAG IV SCH ×2 (10:24→20:04)
[2020-08-08] MEDS: FAMOTIDINE 20 MG in SYRINGE 3 ML IV SCH ×2 (10:24→20:04)
--- NOTE | 2020-08-08 11:20 | Gastrointestinal Consultation ---
Date of Consultation August 08, 2020 Assessment & Plan (1) Hematemesis: Now resolved, in the setting of SBO, likely esophagitis/ gastritis. H/H normal and stable, BUN normal. IV PPI for now. Management of SBO per surgical team. I recommend CTE once his SBO resolves to r/o underlying pathological target point. If SBO does not resolve then will need surgical resection. EGD/Colonoscopy electively as OP. Recall GI if needed. (2) SBO (small bowel obstruction): History of Present Illness Attending Physician: Juan Benton 60 years old male patient with no prior medical history presented to the hospital with sudden onset, sever sharp abdominal pain, nausea and vomiting with some hematemesis, found to have SBO. NG tube placed for decompression, being followed by surgery and currently planned for conservative management. No BM since admission, NG tube aspirate is dark brown/ bile looking. No bleeding seen since admission. KUB today with persistent SBO. Denies any similar episodes in the past, reports some weight loss. Never had colonoscopy. Allergies Allergy/AdvReac Type Severity Reaction Status Date / Time diphenhydramine Allergy Mild Itching Unverified 08/07/20 15:41 [From Benadryl] Home Medications Medication Instructions Recorded Confirmed Type No Known Home Medications 08/07/20 08/07/20 History Patient History Medical History Alcohol use Chewing tobacco use Social History Smoking Status: Former smoker Do You Dip or Chew Tobacco: Yes; Hx Alcohol Use: Yes Alcohol type: beer Hx Substance Use: Yes Last Used Substance: Days (ago) Last Used Substance Other:: Smokes marijuana every weekend Preferred Language: [place] Communication Ability: Effective Information Technology Architect Required: No Beliefs That Will Affect Care: None Current Living Situation: Family Other Information That Helps Us Care for You: No Feels Safe at Home: Yes Safety Concerns: Feels Safe At This Time Assistive Devices: None Review of Systems Constitutional: no fever, no chills and no fatigue Eyes: no eye pain and no worsening vision Ear, Nose, Mouth, Throat: no tinnitus, no dizziness, no nasal discharge and no epistaxis Respiratory: no cough, no dyspnea, no dyspnea on exertion and no wheezing Cardiovascular: no chest pain, no orthopnea, no palpitations and no edema Gastrointestinal: as per Subjective / HPI Musculoskeletal: no stiffness and no myalgia Neurologic: no localized weakness, no paralysis, no tremor(s) and no headache(s) Endocrine: no polydipsia and no polyuria Hematologic / Lymphatic: no easy bleeding and no night sweats Physical Exam Constitutional: + well hydrated, cooperative and comfortable Eyes: PERRL, conjunctivae normal, anicteric sclerae ENMT: external ear and nose normal, oropharynx normal Neck: normal visual inspection and trachea midline Respiratory: normal respiratory effort, lungs clear to auscultation Auscultation: no wheezes Cardiovascular: RRR, no murmur, no edema Gastrointestinal (Abdomen): normal bowel sounds, soft, nontender, no hepatosplenomegaly Musculoskeletal: no cyanosis or clubbing, extremities motor strength 5/5 Skin: no rashes, warm and dry Neurologic: awake; no focal motor deficits Motor/Sensory: no tremor Results & Data ([facility]) Vital Signs (Past 12 Hours) Vital Signs Temp Pulse Resp BP Pulse Ox 08/08/20 07:16 36.6 C 98 H 19 132/78 99 08/08/20 04:09 36.9 C 92 H 18 128/82 99 08/07/20 23:38 36.7 C 90 18 133/81 98 Laboratory Results Laboratory Results - last 24 hr 08/07/20 08/07/20 08/07/20 13:54 13:54 13:57 WBC RBC Hgb POC Hgb Hct POC Hct MCV MCH MCHC RDW Std Deviation RDW Coeff of Sylwia Plt Count MPV Immature Gran % (Auto) Neut % (Auto) Lymph % (Auto) [place] % (Auto) Eos % (Auto) Baso % (Auto) Neut # (Auto) Lymph # (Auto) [place] # (Auto) Eos # (Auto) Baso # (Auto) Immature Gran # (Auto) PT INR POC Sodium Sodium POC Potassium Potassium POC Chloride Chloride Carbon Dioxide POC Total CO2 Anion Gap POC Anion Gap POC BUN BUN Creatinine POC Creatinine Est Cr Clr Drug Dosing Est GFR ( Amer) Est GFR (Non-Af Amer) BUN/Creatinine Ratio Glucose POC Glucose (other) Calcium POC Ioniz Calcium [place] Phosphorus Magnesium Total Bilirubin Direct Bilirubin AST ALT Alkaline Phosphatase Troponin I Total Protein Albumin Globulin Albumin/Globulin Ratio Lipase Gastric Fluid pH Gastric Occult Blood Ethyl Alcohol mg/dL COVID-19 Eval Order CovFluRsv at [facility] SARS-CoV-2 (PCR) NEGATIVE Influenza Type A (PCR) Negative Influenza Type B (PCR) Negative RSV (RT-PCR) Negative Blood Type A Positive Antibody Screen NEGATIVE 08/07/20 08/07/20 08/07/20 13:57 13:57 13:57 WBC 8.92 RBC 5.15 Hgb 16.6 POC Hgb Hct 46.3 POC Hct MCV 89.9 MCH 32.2 MCHC 35.9 RDW Std Deviation 44.5 RDW Coeff of Sylwia 13.6 Plt Count 310 MPV 8.7 Immature Gran % (Auto) 0.1 Neut % (Auto) 77.0 Lymph % (Auto) 16.6 [place] % (Auto) 6.1 Eos % (Auto) 0.2 Baso % (Auto) 0.0 Neut # (Auto) 6.87 H Lymph # (Auto) 1.48 [place] # (Auto) 0.54 Eos # (Auto) 0.02 Baso # (Auto) 0.00 Immature Gran # (Auto) 0.01 PT 10.7 INR 1.1 POC Sodium Sodium 135 L POC Potassium Potassium 3.7 POC Chloride Chloride 102 Carbon Dioxide 28 POC Total CO2 Anion Gap 5.0 POC Anion Gap POC BUN BUN 16 Creatinine 0.93 POC Creatinine Est Cr Clr Drug Dosing 97.0 Est GFR ( Amer) 104.5 Est GFR (Non-Af Amer) 90.2 BUN/Creatinine Ratio 17.0 Glucose 129 H POC Glucose (other) Calcium 9.3 POC Ioniz Calcium [place] Phosphorus 2.5 Magnesium 2.1 Total Bilirubin 1.3 H Direct Bilirubin 0.4 H AST 33 ALT 57 Alkaline Phosphatase 66 Troponin I < 0.015 Total Protein 8.5 H Albumin 3.6 Globulin 4.9 H Albumin/Globulin Ratio 0.7 L Lipase 38 L Gastric Fluid pH Gastric Occult Blood Ethyl Alcohol mg/dL COVID-19 Eval Order SARS-CoV-2 (PCR) Influenza Type A (PCR) Influenza Type B (PCR) RSV (RT-PCR) Blood Type Antibody Screen 08/07/20 08/07/20 08/08/20 14:02 14:06 04:35 WBC RBC Hgb POC Hgb 16.7 Hct POC Hct 49 MCV MCH MCHC RDW Std Deviation RDW Coeff of Sylwia Plt Count MPV Immature Gran % (Auto) Neut % (Auto) Lymph % (Auto) [place] % (Auto) Eos % (Auto) Baso % (Auto) Neut # (Auto) Lymph # (Auto) [place] # (Auto) Eos # (Auto) Baso # (Auto) Immature Gran # (Auto) PT INR POC Sodium 138 Sodium POC Potassium 3.8 Potassium POC Chloride 100 L Chloride Carbon Dioxide POC Total CO2 27 Anion Gap POC Anion Gap 16.0 POC BUN 16 BUN Creatinine POC Creatinine 0.9 Est Cr Clr Drug Dosing Est GFR ( Amer) Est GFR (Non-Af Amer) BUN/Creatinine Ratio Glucose POC Glucose (other) 127 H Calcium POC Ioniz Calcium [place] 1.16 Phosphorus Magnesium Total Bilirubin Direct Bilirubin AST ALT Alkaline Phosphatase Troponin I Total Protein Albumin Globulin Albumin/Globulin Ratio Lipase Gastric Fluid pH 5-7 Gastric Occult Blood Positive A Ethyl Alcohol mg/dL < 3.0 COVID-19 Eval Order SARS-CoV-2 (PCR) Influenza Type A (PCR) Influenza Type B (PCR) RSV (RT-PCR) Blood Type Antibody Screen 08/08/20 08/08/20 06:08 06:08 WBC 5.35 RBC 4.64 L Hgb 14.5 POC Hgb Hct 41.0 L POC Hct MCV 88.4 MCH 31.3 MCHC 35.4 RDW Std Deviation 44.3 RDW Coeff of Sylwia 13.6 Plt Count 222 MPV 8.9 Immature Gran % (Auto) 0.0 Neut % (Auto) 61.3 Lymph % (Auto) 26.2 [place] % (Auto) 11.2 Eos % (Auto) 1.1 Baso % (Auto) 0.2 Neut # (Auto) 3.28 Lymph # (Auto) 1.40 [place] # (Auto) 0.60 H Eos # (Auto) 0.06 Baso # (Auto) 0.01 Immature Gran # (Auto) 0.00 PT INR POC Sodium Sodium 139 POC Potassium Potassium 3.9 POC Chloride Chloride 108 H Carbon Dioxide 25 POC Total CO2 Anion Gap 6.0 POC Anion Gap POC BUN BUN 11 Creatinine 0.73 POC Creatinine Est Cr Clr Drug Dosing 98.3 Est GFR ( Amer) 118.5 Est GFR (Non-Af Amer) 102.2 BUN/Creatinine Ratio 15.3 Glucose 90 POC Glucose (other) Calcium 8.7 POC Ioniz Calcium [place] Phosphorus Magnesium 2.0 Total Bilirubin Direct Bilirubin AST ALT Alkaline Phosphatase Troponin I Total Protein Albumin Globulin Albumin/Globulin Ratio Lipase Gastric Fluid pH Gastric Occult Blood Ethyl Alcohol mg/dL COVID-19 Eval Order SARS-CoV-2 (PCR) Influenza Type A (PCR) Influenza Type B (PCR) RSV (RT-PCR) Blood Type Antibody Screen
[2020-08-08] MEDS ORDERED: ATIVAN IV ALCOHOL WITHDRAWL IV SCH (14:15)
[2020-08-08] MEDS ORDERED: LORazepam 0.5 MG/1 ML VIAL IV STA (14:15)
[2020-08-08] MEDS ORDERED: LORazepam 2 MG/4 ML VIAL ONE (14:18)
[2020-08-08] MEDS ORDERED: LORazepam 3 MG/6 ML VIAL IV PRN (14:45)
[2020-08-08] MEDS ORDERED: LORazepam 2 MG/4 ML VIAL IV PRN (14:45)
[2020-08-08] MEDS ORDERED: ATIVAN IV ALCOHOL WITHDRAWL IV PRN (14:45)
[2020-08-08] MEDS ORDERED: LORazepam 1 MG TAB PO PRN (14:45)
[2020-08-08] MEDS ORDERED: LORazepam 1 MG/2 ML VIAL IV PRN (14:45)
--- NOTE | 2020-08-08 16:18 | XRay Report ---
KUB CLINICAL HISTORY: Enteric tube placement. FINDINGS: An AP, portable, supine view of the lower chest and upper abdomen is compared to study perf ormed earlier the same day 08/08/2020 [address] correlated with abdominal CT dated 08/07/2020. An enteric tube has been advanced. The tip now projects over the gastric fundus. There is no evidence of bowel obstru ction. No abnormal abdominal calcifications are identified. Airspace consolidation is seen in the rig ht upper lobe. IMPRESSION: 1. An enteric tube has been advanced. The tip projects over the gastric fundus. 2. No bowel obstruction. 3. Airspace consolidation is seen in the right upper lobe. Electronically signed by: Vishnu Alcaraz M.D. 08/08/2020 4:16 PM
[2020-08-08] MEDS ORDERED: CARBOHYDRATES FOR HYPOGLYCEMIA PO PRN (19:46)
[2020-08-08] MEDS ORDERED: GLUCOSE 40% GEL 15 GM TUBE PO PRN (19:46)
[2020-08-08] MEDS ORDERED: GLUCOSE 10 TABS/TUBE PO PRN (19:46)
[2020-08-08] MEDS ORDERED: GLUCAGON FOR INJ 1 MG VIAL SQ PRN (19:46)
[2020-08-08] MEDS: DEXTROSE 50% 50 ML SYRINGE IV PRN ×2 (20:20→20:35)
[2020-08-08] MEDS: DEXTROSE 5% 1,000 ML IV SCH (20:43)
[2020-08-08 21:33] LABS: Albumin Level 2.5 gm/dl (3.4-5.0); BUN Creatinine Ratio 14.2 (10-20); Calcium 8.1 mg/dl (8.5-10.1); Creatinine Clr Calc Pharmacy 89.7 ml/min; Est GFR (African American) 114.1; Est GFR (Non-African American) 98.5; Potassium 3.4 mmol/L (3.5-5.1)
[2020-08-08 21:40] LABS: Albumin Globulin Ratio 0.7 (0.9-2); Beta-Hydroxybutyrate 0.96 mg/dl (0.2-2.81); Bilirubin,Total 0.6 mg/dl (0.2-1); Globulin 3.8 gm/dl (2.5-4.0); Total Protein 6.3 gm/dl (6.4-8.2)
--- NOTE | 2020-08-08 22:07 | Hospitalist Progress Note ---
Date of Service August 08, 2020 Assessment & Plan (1) SBO (small bowel obstruction): - Mental monitor bed - Continue conservative measures with n.p.o., IV fluids, and low intermittent NG tube suction - Consider infectious cause, will start Cipro and Flagyl IV empirically -IV Pepcid 20 mg every 12 hours as PPI is on backorder - Appreciate input from GI and Gen surgery. Patient will be treated conservatively. Had to push NG tube a little further as tip was at lebvel of diaphragm. was on low interittent suction. KUB has shown that it has resolved. will clamp NG tube. (2) Hematemesis: - Hematemesis seems doubtful as patient is now draining bilious se cretions. Hemoglobin is within normal limits - We will order gastroccult - consider EGD, GI will be consulted for possible further work-up (3) Patient denies significant medical history: Patient is on no outpatient medications, denied any medical problems or previous abdominal surgery. He also denied NSAID intake. I will continue to monitor. The patient does have regular alcohol intake, I would be concerned for a possible alcohol withdrawal. SCDs only now for DVT prophylaxis. Admission and Anticipated Discharge Date Admission Date: August 07, 2020 Subjective He appears drowsy. He opens his eyes, but has no complaints. Review of Systems Review of Systems: All systems reviewed & are unremarkable except as noted in HPI & below Physical Exam Physical Exam: Neck: trachea midline, no thyromegaly Respiratory: normal respiratory effort, lungs clear to auscultation Auscultation: lungs clear to auscultation bilaterally Cardiovascular: RRR, no murmur, no edema Heart Sounds: normal S1 and normal S2 Gastrointestinal (Abdomen): decreased bowel sounds, soft, nontender, no hepatosplenomegaly Inspection/Auscultation: abdomen normal to inspection and + hypoactive bowel sounds Percussion/Palpation: abdomen soft Rectal Exam: heme negative stool (scant brown stool per ER physician) NG tube draining dark green secretions Musculoskeletal: no cyanosis or clubbing, extremities motor strength 5/5 Neurologic: PERRL, EOMI, accommodation nl, no face palsy, no dysarthria Results & Data Results & Data ([facility]) Vital Signs (Past 12 Hours) Vital Signs Temp Pulse Pulse Resp BP Pulse Ox 08/08/20 19:16 36.5 C 67 18 126/80 92 08/08/20 16:00 105 H 08/08/20 15:25 36.7 C 75 20 132/80 99 08/08/20 11:54 36.4 C L 97 H 20 112/75 99 PG Care Time/CCT Total # of Minutes Spent Total Time Spent with Patient: Total time spent is greater than 50% in coordination of care (as documented) at patient's floor/unit and/or counseling patient: Coding Level of Care Code 17112 Subseq Hosp Care Lvl 3 Diagnoses SBO (small bowel obstruction) K56.609 Hematemesis K92.0 Patient denies significant medical history Time Spent (min) 35
--- NOTE | 2020-08-09 00:17 | Communication Note ---
Date of Service: August 09, 2020 Notified by nursing that patient was having low blood sugars <70, no hx DM and not on hypoglycemia protocol. Protocol initiated, blood sugars mildly responded to apple juice with NG tube clamped,but not full response. Started on D5W. Labs ordered for hypoglycemia w/o hx DM: insulin, c-peptide, b-oh, CMP Insulin and C-peptide still pending. B-OH and Bmp normal, mild hypokalemia at 3.4. albumin 2.5. Can consider exogenous insulin use, marine oil terminal superintendent sulfonaurea, worsening inflammatory state as cause of hypoglycemia for further workup. A1c, random cortisol in AM also ordered.
[2020-08-09] MEDS: metroNIDAZOLE 500 MG/100 ML BAG IV SCH (04:15)
[2020-08-09] MEDS: DEXTROSE 5% 1,000 ML IV SCH (05:15)
[2020-08-09 07:58] LABS: BUN Creatinine Ratio 13.6 (10-20); Calcium 8.1 mg/dl (8.5-10.1); Creatinine Clr Calc Pharmacy 100.3 ml/min; Est GFR (African American) 118.5; Est GFR (Non-African American) 102.2; Potassium 3.6 mmol/L (3.5-5.1)
[2020-08-09 08:08] LABS: Estimated Average Glucose 91 mg/dl; Hemoglobin A1C 4.8 % (4.5-5.6)
[2020-08-09] MEDS: CIPROFLOXACIN / D5W 400 MG/200 ML BAG IV SCH (08:22)
[2020-08-09] MEDS: FAMOTIDINE 20 MG in SYRINGE 3 ML IV SCH (08:22)
--- NOTE | 2020-08-15 11:50 | Discharge Summary ---
Date of Service August 09, 2020 Admission HPI Per Admitting Provider This is a 60-year-old male who denies any medical problems that presents today complaining of significant abdominal pain. Patient is a somewhat limited historian but answers questions appropriately. Patient states that yesterday in the early afternoon he started having abdominal pain which worsened fairly quickly. The pain was in the bilateral upper quadrants. It was associated with vomiting which was described to the ER attending as "black and tarry ". Pain was significant which prompted the patient to come to the emergency room. He did note his last bowel movement was yesterday which was brown and fairly normal. Patient was afebrile, denied symptom such as chest pain, shortness of breath, fever, chills. During work-up, patient was found to have a small bowel obstruction with questionable nonspecific enteritis. NG tube was inserted which is draining dark bilious material which does not appear to be blood. Patient is uncomfortable secondary to the NG tube but feels his abdominal pain is improved significantly. Patient is now being admitted for further work-up and treatment. Principal Diagnosis small bowel obstruction Discharge Exam Neck: trachea midline, no thyromegaly Respiratory: normal respiratory effort, lungs clear to auscultation Auscultation: lungs clear to auscultation bilaterally Cardiovascular: RRR, no murmur, no edema Heart Sounds: normal S1 and normal S2 Gastrointestinal (Abdomen): decreased bowel sounds, soft, nontender, no hepatosplenomegaly Inspection/Auscultation: abdomen normal to inspection and + hypoactive bowel sounds Percussion/Palpation: abdomen soft Rectal Exam: heme negative stool (scant brown stool per ER physician) NG tube draining dark green secretions Musculoskeletal: no cyanosis or clubbing, extremities motor strength 5/5 Neurologic: PERRL, EOMI, accommodation nl, no face palsy, no dysarthria Discharge Data Allergies Allergy/AdvReac Type Severity Reaction Status Date / Time diphenhydramine Allergy Mild Itching Unverified 08/07/20 15:41 [From Benadryl] Consultations 08/07/20 16:14 ED Decision to Admit Stat 08/07/20 19:26 Consult Gastroenterology Routine Consult General Surgery Routine Ordered Studies 08/07/20 14:01 CT abd pelvis IV con only Stat Hospital Course (1) SBO (small bowel obstruction): - Mental monitor bed - Continue conservative measures with n.p.o., IV fluids, and low intermittent NG tube suction - Consider infectious cause, will start Cipro and Flagyl IV empirically -IV Pepcid 20 mg every 12 hours as PPI is on backorder - Appreciate input from GI and Gen surgery. Patient will be treated conservatively. Had to push NG tube a little further as tip was at lebvel of diaphragm. was on low interittent suction. KUB has shown that it has resolved. will clamp NG tube. On 08/09 Patient decided to sign out against medical advice. Instructions given to patient (2) Hematemesis: - Hematemesis seems doubtful as patient is now draining bilious secretions. Hemoglobin is within normal limits - We will order gastroccult - consider EGD, GI will be consulted for possible further work-up (3) Patient denies significant medical history: Patient is on no outpatient medications, denied any medical problems or previous abdominal surgery. He also denied NSAID intake. I will continue to monitor. The patient does have regular alcohol intake, I would be concerned for a possible alcohol withdrawal. SCDs only now for DVT prophylaxis. Total Time Total Time Spent Total Time Spent (In Minutes): 31 Total Time Includes: Examination of the Patient and Discharge Planning Discharge Plan Discharge Items Patient Disposition: Against Medical Advice Reason For Visit: SBO Condition on Discharge: Fair Activity: Resume your previous activity Non-emergency contact: Primary Care Provider Follow-up/Referrals: PCP,VARGAS [Primary Care Provider] - Addtl Legal Aide Provider Instructions: Recommend liquid diet for 2-3 days until you have bowel movement. Then advance to a soft diet, and then progress to a regular diet. If your symptoms worsen, please return to the hospital. Pending Studies at Discharge: No Stand-Alone Forms: My [facility], Smoking Cessation Medications and DC Order Prescriptions: No Action No Known Home Medications RF: 0 Discharge Orders: Left Against Medical Advice (Routine); Ordered 08/09/20 Ordered By: Juan Benton Admission Data Admit Date/Time: 08/07/20 17:13 Attending Provider: Juan Benton Admit Provider: Francisco Morales Primary Care Provider: PCP,NO Other Providers: Francisco Morales ; Kae Ordonez ; Jones Pascual Other Interventions: Discharge Summary Assessment (RN) Last Done: 08/09/20 10:35 Coding Level of Care Code D/C Day Management >30 mins Diagnoses SBO (small bowel obstruction) K56.609 Hematemesis K92.0 Patient denies significant medical history
== END 2020-08-09 11:12 | disposition left against medical advice (07) | DRG 390 ==
LOC: ED 13:35 → 2S 17:13 → SUATTDRO 17:13 → 2S 18:20